=== PATIENT | female | born 1945 | race Caucasian/White ===

== ENCOUNTER → 2016-07-10 | Outpatient (CLI) | payer MEDICARE, OTHER ==
--- NOTE | 2016-07-10 11:18 | RAD ---
Examination: Diagnostic left breast mammogram and targeted ultrasound left breast History: History of left breast pain Comparison: 01/21/2016 Technique: CC, MLO views of the left breast. Ultrasound left breast were performed Findings: The left breast parenchyma demonstrates scattered fibroglandular densities, category B. There are no suspicious masses axial distortion identified. No suspicious calcifications identified in the left breast Targeted ultrasound views of the left breast at 6:00 position demonstrated no definite evidence of mass or lesion. Impression: Benign findings BI-RADS 2. Recommend routine screening mammogram. For breast pain, clinical follow-up is recommended.
== END | disposition home or self-care (01) ==
LOC: KCIC MAMMO 09:53
PROVIDERS: ATTEND Nurse Practitioner Acute Care
DX: R92.8 Other abnormal and inconclusive findings on diagnostic imaging of breast (principal); N64.4 Mastodynia
CPT/HCPCS: 76641; G0206; 77065

== ENCOUNTER → 2017-01-23 | Outpatient (CLI) | payer MEDICARE, OTHER ==
--- NOTE | 2017-01-23 12:34 | KCIC ---
DATE: 01/23/2017 EXAM: MAMMO FE SCREENING BILATERAL HISTORY: Routine screening COMPARISON: 01/21/2016 FINDINGS: Breast Density: SCATTERED The breast parenchyma shows scattered fibroglandular densities. Breast parenchyma level B. There are no dominant suspicious masses, suspicious microcalcifications or evidence of architectural distortion. Benign-appearing calcification identified in the right breast. Small nodule identified identified similar to prior exam. IMPRESSION: Benign findings BI-RADS CATEGORY: 2 BENIGN FINDING RECOMMENDED FOLLOW-UP: 12M 12 MONTH FOLLOW-UP PQRS compliance statement: Patient information was entered into a reminder system with a target due date 01/23/2018 for the next mammogram. Mammography is a sensitive method for finding small breast cancers, but it does not detect them all and is not a substitute for careful clinical examination. A negative mammogram does not negate a clinically suspicious finding and should not result in delay in biopsying a clinically suspicious abnormality. "Our facility is accredited by the [employer]."
== END | disposition home or self-care (01) ==
LOC: KCIC MAMMO 09:22
PROVIDERS: ATTEND Family Medicine
DX: Z12.31 Encounter for screening mammogram for malignant neoplasm of breast (principal)
CPT/HCPCS: 77063; G0202; 77067

== ENCOUNTER → 2018-02-05 | Outpatient (CLI) | payer MEDICARE, OTHER ==
--- NOTE | 2018-02-05 12:19 | KCIC ---
EXAM: Bilateral digital screening mammogram with tomosynthesis. HISTORY: 72-year-old female presents for screening mammography. TECHNIQUE: Full-field digital craniocaudal and mediolateral oblique 2D and 3D tomosynthesis images of both breasts are obtained for evaluation. Computer aided detection with [employer] software version 9.3 was applied. COMPARISON: 01/23/2017 BREAST PARENCHYMAL DENSITY: Level B - Scattered fibroglandular densities. FINDINGS: There is no new suspicious mass, microcalcification or region of architectural distortion. There is a stable small nodular density within the 6:00 anterior right breast. IMPRESSION: BI-RADS Category 2: Benign finding(s). RECOMMENDATION: Annual mammography is recommended. If your mammogram demonstrates that you have dense breast tissue, which could hide abnormalities, and if you have other risk factors for breast cancer that have been identified, you might benefit from supplemental screening tests that may be suggested by your ordering physician. Dense breast tissue, in and of itself, is a relatively common condition. This information is not provided to cause undue concern, but rather to raise your awareness and to promote discussion with your physician regarding the presence of other risk factors, in addition to dense breast tissue. A report of your mammography results will be sent to you and your physician. You should contact your physician if you have any questions or concerns regarding this report. Mammography is a sensitive method for finding small breast cancers, but it does not detect them all and is not a substitute for careful clinical examination. A negative mammogram does not negate a clinically suspicious finding and should not result in delay in biopsying a clinically suspicious abnormality. PQRS compliance statement - Patient information was entered into a reminder system with a target due date for the next mammogram. "Our facility is accredited by the [employer]amm[employer]." Electronically signed by: Bárbara Caceres MD (02/05/2018 12:16 PM) [id number]
== END | disposition home or self-care (01) ==
LOC: KCIC MAMMO 10:42
PROVIDERS: ATTEND Family Medicine
DX: Z12.31 Encounter for screening mammogram for malignant neoplasm of breast (principal)
CPT/HCPCS: 77063; 77067

== ENCOUNTER → 2019-02-15 | Outpatient (CLI) | payer MEDICARE, OTHER ==
--- NOTE | 2019-02-15 14:10 | KCIC ---
Bilateral digital screening mammograms with 3-D tomosynthesis: Reason for examination: Routine screening. Comparison is made to previous studies dated 02/05/2018 and 01/23/2017. Bilateral mammograms in CC and oblique projections were obtained with 2-D imaging and 3-D tomosynthesis imaging on a Siemens Inspiration unit and reviewed on the workstation. Interpretation was made with the benefit of CAD. The skin and nipples show no abnormalities. No abnormal axillary lymph nodes are seen. The breast parenchyma shows scattered fatty and fibroglandular density. (Breast density: Category B.) There continue to be small nodular parenchymal densities which are stable. There are no new dominant masses, suspicious calcifications or architectural distortion. Benign calcifications are present. Impression: No evidence of malignancy. Recommend routine screening. BI-RAD Category 2: Benign. "Our facility is accredited by the [employer]ammography [employer]." This patient's information has been entered into a reminder system for the patient to be notified with the results of her examination and a target date for the next mammogram. Electronically signed by: Louisa Bowles MD (02/15/2019 2:07 PM) [id number]
== END | disposition home or self-care (01) ==
LOC: KCIC MAMMO 10:45
PROVIDERS: ATTEND Family Medicine
DX: Z12.31 Encounter for screening mammogram for malignant neoplasm of breast (principal); N64.89 Other specified disorders of breast
CPT/HCPCS: 77063; 77067

== ENCOUNTER → 2020-02-17 | Outpatient (CLI) | payer MEDICARE, OTHER ==
--- NOTE | 2020-02-17 13:44 | KCIC ---
Bilateral digital screening mammograms with 3-D tomosynthesis: Reason for examination: Routine screening. Comparison is made to previous studies dated back to 01/21/2016. Bilateral mammograms in CC and oblique projections were obtained with 2-D imaging and 3-D tomosynthesis imaging on a Siemens Inspiration unit and reviewed on the workstation. Interpretation was made with the benefit of CAD. The skin and nipples show no abnormalities. No abnormal axillary lymph nodes are seen. The breast parenchyma shows scattered fatty and fibroglandular density. (Breast density: Category B.) There continues to be a small circumscribed nodule in the subareolar 6:00 position of the right breast which is unchanged. There are no new dominant masses, suspicious calcifications or architectural distortion. Benign calcifications are seen in the right breast. Impression: No evidence of malignancy. Recommend routine screening. BI-RAD Category 2: Benign. "Our facility is accredited by the [employer] Mammography [employer]." This patient's information has been entered into a reminder system for the patient to be notified with the results of her examination and a target date for the next mammogram. Electronically signed by: Louisa Bowles MD (02/17/2020 1:41 PM) [email or web address]
== END ==
LOC: KCIC MAMMO 10:18
PROVIDERS: ATTEND Family Medicine
DX: Z12.31 Encounter for screening mammogram for malignant neoplasm of breast (principal); N64.89 Other specified disorders of breast
CPT/HCPCS: 77063; 77067

== ENCOUNTER → 2021-02-18 | Outpatient (CLI) | payer MEDICARE, OTHER ==
--- NOTE | 2021-02-18 15:09 | KCIC ---
Bilateral digital screening mammograms with 3-D tomosynthesis: Reason for examination: Routine screening. Comparison is made to previous studies dated back to 01/11/2015. Bilateral mammograms in CC and oblique projections were obtained with 2-D imaging and 3-D tomosynthes is imaging on a Siemens Inspiration unit and reviewed on the workstation. Interpretation was made wit beverley the benefit of CAD. The skin and nipples show no abnormalities. No abnormal axillary lymph nodes are seen. The breast par enchyma shows scattered fatty and fibroglandular density. (Breast density: Category B.) There continu es to be a small nodular density in the subareolar 6:00 position anteriorly in the right breast which is stable. There are no new dominant masses, suspicious calcifications or architectural distortion. Benign calcifications are present. Impression: No evidence of malignancy. Recommend routine screening. BI-RAD Category 2: Benign. "Our facility is accredited by the [employer]ammography [employer]." This patient's information has been entered into a reminder system for the patient to be notified wit h the results of her examination and a target date for the next mammogram. Electronically signed by: Louisa Bowles MD (02/18/2021 3:07 PM) [email or web address]
== END ==
LOC: KCIC MAMMO 09:41
PROVIDERS: ATTEND Family Medicine
DX: Z12.31 Encounter for screening mammogram for malignant neoplasm of breast (principal)
CPT/HCPCS: 77063; 77067